=== PATIENT | female | born 1960 ===

== ENCOUNTER 2017-12-28 16:20 | Emergency (ER) | payer SELFPAY ==
[2017-12-28] MEDS ORDERED: Adacel (T-DAP) 0.5 ML VIAL ONE (17:03)
== END 2017-12-28 17:16 | disposition home or self-care (01) ==
LOC: SCSER 16:20
DX: T22.212A Burn of second degree of left forearm, initial encounter (principal); I10 Essential (primary) hypertension; Z79.899 Other long term (current) drug therapy; X10.2XXA Contact with fats and cooking oils, initial encounter
CPT/HCPCS: 90471; 90715